=== PATIENT | female | born 1975 | race Caucasian/White ===

== ENCOUNTER 2018-02-18 07:03 | Day surgery (SDC) | payer BC ==
--- NOTE | 2018-02-18 06:14 | History and Physical Report ---
DATE: 02/17/2018. CHIEF COMPLAINT AND HISTORY OF CHIEF COMPLAINT: This is a patient with a history of an intractable thoracic radiculitis. She had a spinal cord stimulator trial initiated on 02/05/2018. She arrived on 02/16/2018 for removal of the trial. During the removal of the trial, one of the two internal spinal cord stimulators upon removal had fractured the distal three electrodes which remained under the skin. Conservative efforts at retrieving the fractured leads under the skin were unsuccessful. She is here for removal under anesthesia and appropriate imaging techniques. PAST MEDICAL HISTORY: Headaches, intractable thoracic radiculopathy. SOCIAL HISTORY: Social alcohol, caffeine. FAMILY HISTORY: Diabetes, hypertension. PAST SURGICAL HISTORY: Gallbladder surgery, gastric surgery. MEDICATIONS ON ADMISSION: To be provided. ALLERGIES: None. PHYSICAL EXAMINATION: General: Height and weight are unknown. Vital Signs: Not available. HEENT: Within normal limits. Lungs: Clear. Heart: Regular rate and rhythm. Abdomen: Nontender. Musculoskeletal: Examination of the musculoskeletal system shows the underlying pain pattern to be left thoracic radicular components approximating T10, 11, and 12. The two penetration points of the spinal cord stimulator trial were identified and were both intact. Imaging showed three electrodes subcutaneously under the left penetration point. There were no indications of breakdown of the skin, drainage, or cellulitis. Sensory hines are intact. Neurologic: Cranial nerves are intact. IMPRESSION: 1. THORACIC RADICULOPATHY, ICD-10 CODE M54.14. 2. SPINAL CORD STIMULATOR LEAD FRACTURE, SUBCUTANEOUS. PLAN: The patient is here for removal of the three electrodes from one of the spinal cord stimulators which fractured upon removal. They are subcutaneous. Imaging showed them not to be within the spine but within the deeper subcutaneous tissues. The procedure will be considered outpatient. The patient understands an incision is possible with suture closure. The risks, side effects, and complications have been carefully reviewed and discussed. JOB NUMBER: [id number] cc: Jonathan Esteban
[2018-02-18] MEDS ORDERED: MIDAZOLAM HCL 2MG/2ML VIAL IV ONE (07:04)
[2018-02-18] MEDS ORDERED: CEFAZOLIN 1G VIAL IM ONE (07:04)
[2018-02-18] MEDS ORDERED: LIDOCAINE 1% W/EPI 1:200,000 MPF 30ML SQ ONE (07:04)
[2018-02-18] MEDS ORDERED: MORPHINE SULFATE 5 MG/ML PFS IVP ONE (07:04)
[2018-02-18] MEDS ORDERED: FENTANYL PF 100MCG/2ML VIAL IV ONE (07:04)
[2018-02-18] MEDS ORDERED: PROPOFOL 10 MG/ML VIAL IV ONE (07:04)
[2018-02-18] MEDS ORDERED: *PACU ONLY* KETAMINE HCL 10 MG/ML (20ML) VIAL IV ONE (07:04)
[2018-02-18] MEDS ORDERED: BUPIVACAINE 0.5% W/EPI MPF 30 ML VIAL IVP ONE (07:04)
--- NOTE | 2018-02-26 19:57 | Operative Note - [place] ---
DATE OF SURGERY: 02/18/18 PREOPERATIVE DIAGNOSES: 1. THORACIC RADICULITIS, ICD-10 CODE = M54.14. 2. FRACTURED SPINAL CORD STIMULATOR SUBCUTANEOUS. SURGERY: INCISION, SUBCUTANEOUS DISSECTION, AND REMOVAL OF FRACTURED SPINAL CORD STIMULATOR. SURGEON: EMORY WINSTON D.O. ANESTHESIA: LOCAL SEDATION. ANESTHESIA PROVIDER: YARIEL STEWART CRNA. INDICATION: This patient, with a spinal cord stimulator trial for an intractable thoracic radiculopathy, was having the two-lead trial removed. During the removal of the left lead, some pressure was encountered, the lead was removed and it was noted that 3 distal electrode had fractured off the lead. At the time of the removal, she was taken into the procedure room and under fluoroscopy, the electrodes were identified posterior to the spinal anatomy but within the deeper subcutaneous tissue. It was felt at the time in the procedure room office space would not be easy or appropriate to try to remove the electrodes. It was opted then to take her to the Operating Room and under anesthesia with good sedation and imaging remove the electrodes. SURGERY: Intravenous line, vital sign monitoring, IV sedation, prepped and draped sterile technique, patient position prone. Under imaging, the three electrodes were identified, the skin infiltrated, incision made and subcutaneous dissection was conducted to the deeper subcutaneous tissues. The three electrodes were retrieved intact. Antibiotic irrigation, Bovie for hemostasis. The incision was closed with Vicryl for fascia and a running subcuticular Vicryl for skin, Dermabond closure. She was transported to the Recovery Room stable, no side-effects from the procedure. DISCHARGE INSTRUCTIONS: 1. The site should remain clean and dry. The Dermabond will allow showering. 2. Standard activity could be resumed in the next 3-5 days depending upon the amount of subcutaneous soreness or drainage. 3. Standard medications resumed including Levaquin, the antibiotic, 500 mg once a day for 14 days. 4. The office will contact the patient. We will evaluate the site in 7-10 days. cc: Dr. Matthias Alvarez, III JOB NUMBER: [id number] MTDD
== END 2018-02-18 09:50 | disposition home or self-care (01) ==
LOC: SUR 07:03
PROVIDERS: ATTEND Pain Medicine Interventional Pain Medicine
DX: M54.14 Radiculopathy, thoracic region (principal)
CPT/HCPCS: 63661; 01936; 81025; J3010; J2270; J0690